=== PATIENT | female | born 1950 ===

== ENCOUNTER 2017-03-20 07:42 | Emergency (ER) | payer OTHER ==
[~2017-03-20] VITALS: Ht 165.1 cm; Wt 86.2 kg
[~2017-03-20 07:42] MED LIST: ALTACE10 M1; CLARINEX5 MG/TAB PO; KLONOPIN2 MG/TAB; NASONEX17 GM NS; PROZAC10 MG; ZYNCOF 20-400120 ML PO
== END 2017-03-20 09:20 | disposition home or self-care (01) ==
LOC: ER 07:42
DX: M54.2 Cervicalgia (principal); M62.838 Other muscle spasm